=== PATIENT | male | born 1930 | race Caucasian/White ===

== ENCOUNTER 2017-04-24 15:25 | Inpatient (IN) | payer OTHER ==
[~2017-04-24] VITALS: Ht 188 cm; Wt 70.8 kg
--- NOTE | ~2017-04-24 | EKG ---
[address] [place] [address] ELECTROCARDIOGRAM REPORT Name: MANDA MAC Room #: 449-I ADM IN M.R.#: [id number] Admission: 04/24/17 Attend Phys: Bishop Perrin MD Discharge: Date of : 32 Report #: [id number] THIS REPORT FOR: //name// [facility] ED Test Date: 2017-04-24 Test Time: 16:11:24 Pat Name: MANDA MAC Department: Room: [facility] Gender: M Commercial Coordinator: LESVIA : 1930 Requested By: Jared Pugh Order Number: [id number] MD: Tony Ohara Measurements Intervals [place] Rate: 79 P: 25 OR: 136 QRS: 59 QRSD: 98 T: 59 QT: 388 QTc: 445 Interpretive Statements Sinus rhythm Early R-wave progression No previous ECG available for comparison Electronically Signed On 04-25-2017 10:47:20 CDT by Tony Ohara [email or web address] <ELECTRONICALLY SIGNED> By: Tony Ohara MD, [facility] 04/25/17 1047 1611 1611 Tony Ohara MD, FACC /EPI
--- NOTE | ~2017-04-24 | P ---
[facility] [place] [address] PROCEDURE REPORT Name: MANDA MAC Room #: 449-I ADM IN M.R.#: [id number] Admission: 04/24/17 Attend Phys: Bishop Perrin MD Discharge: Date of : 31 Report #: [id number] THIS REPORT FOR: //name// CC: Cal Perrin MD DATE OF SERVICE: 04/26/2017 PROCEDURE: EGD with biopsy. PATIENT OF: Dr. Cal Chen and Dr. Bishop Perrin. INDICATION FOR PROCEDURE: Evaluate severe anemia. The patient experienced syncope from this. Informed consent for this procedure was obtained prior to the administration of any medication. The risks of the procedure, which include bleeding, perforation, infection, complications of sedation and the possibility I could miss something, have been explained to the patient and his and they have indicated their consent by signing. DESCRIPTION OF PROCEDURE: Propofol was slowly titrated before and during this procedure for patient comfort by the anesthesia service. The TowerMetriXn upper videoscope was introduced through the upper esophageal sphincter and advanced under direct visualization to the second portion of the duodenum. Findings are noted on withdrawal of the scope. The distal portion of the second portion of the duodenum appears normal. In the proximal portion of the second portion of the duodenum, there is erythema and a stricture that is not tight enough to prevent passage of the scope. It is very erythematous, edematous and firm. Multiple biopsies times 4 were obtained for histopathology from this area. The duodenal bulb distally is erythematous and edematous as well. Pylorus mildly erythematous. Antrum, erythematous mucosa. There is a small 2- to 3-mm punctate erosion/ulceration that is nonbleeding in the antrum of the stomach and just proximal to that in the antrum, there is a 2-cm edematous circular lesion of uncertain etiology. Biopsies were obtained times 3 from this circular lesion just proximal to the ulceration. Good hemostasis is noted after all biopsies. Biopsies were also taken from the antrum and body of the stomach to evaluate for possible other etiologies of gastroduodenitis and H. pylori infection. The body of the stomach appeared normal on retroflexed view. Cardia and fundus appeared normal. The patient does have a small hiatal hernia. The scope was then withdrawn up into the esophagus and the Z line is approximately located up at 35-36 cm. 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 There are a few erosions in the esophagus that are nonbleeding, proximal [facility] [address] [place] [address] PROCEDURE REPORT Name: MANDA MAC Room #: 449-I ADM IN M.R.#: [id number] Admission: 04/24/17 Attend Phys: Bishop Perrin MD Discharge: Date of : 31 Report #: [id number] to the Rodriguez's ectopic mucosa. The scope was withdrawn. The patient went to the recovery area in stable condition. He tolerated the procedure well. IMPRESSION: 1. 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 2. Small hiatal hernia. 3. Distal gastritis with erosion/ulceration, size 2-3 mm, nonbleeding. 4. A 2-cm edematous area in the antrum, biopsied times 3 for histopathology. 5. Duodenitis of the distal bulb and proximal second portion of the duodenum with a stricture. Multiple biopsies were taken from this area for histopathology. The more distal second portion of the duodenum appears normal. I could not identify the ampulla in this stricture or distal to it or proximal to it. The ampulla may be involved. RECOMMENDATIONS: My recommendations were to continue the proton pump inhibitors, stop taking the Aleve. We will add Carafate slurry to his regimen and we will await the biopsy results. Thank you very much once again for allowing me to participate in his care, Dr. Chen and Dr. Perrin. <ELECTRONICALLY SIGNED> By: Molly Almanza DO 04/26/17 1931 1034 1154 Molly Almanza DO /nt
--- NOTE | ~2017-04-24 | H ---
[facility] [place] [address] HISTORY AND PHYSICAL Name: MANDA MAC Room #: 449-I ADM IN M.R.#: [id number] Admission: 04/24/17 Attend Phys: Bishop Perrin MD Discharge: Date of : 31 Report #: [id number] THIS REPORT FOR: //name// CC: Cal Perrin DATE OF SERVICE: 04/24/2017 CHIEF COMPLAINT: Syncope. HISTORY OF PRESENT ILLNESS: The patient is an 86-year-old male with no significant medical history other than diabetes, controlled with diet and metformin, presented to the emergency room because of a syncopal episode. The patient was actually accompanying his for physical therapy appointment. He was moving from one chair to another, when he ____ some dizziness and he nearly passed out. It was not preceded by any chest pain or shortness of breath. The patient did state that he has been having some indigestion like symptoms and chest discomfort over the last few weeks. He has also had poor p.o. intake. No nausea, vomiting, or abdominal pain. No melena, hematemesis, or hematochezia. Workup in the emergency room showed anemia and also positive stool occult blood. The patient denies any focal numbness or weakness of the extremity. PAST MEDICAL HISTORY: Significant for diabetes, diet controlled and on metformin. No hypertension. No coronary artery disease. No CVA. History of mild dementia. PAST SURGICAL HISTORY: Includes tonsillectomy, vasectomy, scrotal cyst removed, and umbilical surgery. ALLERGIES: No known drug allergy. HOME MEDICATIONS: Include multivitamin, metformin, and ____. SOCIAL HISTORY: No smoking, alcohol abuse, or illicit drug abuse. FAMILY HISTORY: Noncontributory for this 86-year-old male. REVIEW OF SYSTEMS: CONSTITUTIONAL: He might have lost few pounds, unable to quantify. No fever or chills. EYES: No change in vision. THROAT: Denies any sore throat. CARDIOVASCULAR: As above. RESPIRATORY: No cough or expectoration. GASTROINTESTINAL: As above. GENITOURINARY: No dysuria or hematuria. [facility] [address] [place] [address] HISTORY AND PHYSICAL Name: MANDA MAC Room #: 449-I [facility] IN .R.#: [id number] Admission: 04/24/17 Attend Phys: Bishop Perrin MD Discharge: Date of : 31 Report #: [id number] NEUROLOGIC: No focal numbness or weakness of the extremity. PSYCHIATRIC: No anxiety or depression. A 12-point review of system is negative other than the positive and negative dictated in the history of present illness and the review of system. PHYSICAL EXAMINATION: VITAL SIGNS: Blood pressure is 132/49, heart rate of 85 per minute, and afebrile. GENERAL: The patient is awake and alert, not in acute respiratory distress. EYES: Pupils are equal, reactive to light, nonicteric conjunctivae. THROAT: He has mildly dry mucosa. NECK: Supple. No JVD. No bruit. No lymphadenopathy. CARDIOVASCULAR SYSTEM: S1, S2, ____ S3. No murmur. CHEST: Bilateral air entry present. Clear on auscultation. ABDOMEN: Soft. Bowel sounds present. No mass. No organomegaly. No tenderness. PERIPHERY: No pedal edema. No calf tenderness. Dorsalis pedis 1+. NEUROLOGIC: No gross motor or sensory deficit. LABORATORY DATA: Reviewed. White count is 12,000, hemoglobin is ____. Positive stool occult blood. The platelet is 236. PT and PTT are within normal limit. BUN and creatinine of 39 and 0.8. His lactic acid was elevated at 4.2 and AST and ALT are within normal limit. Lipase is 68. CT of the brain showed no acute intracranial abnormality. There are atrophic changes. Chest x-ray showed no acute abnormality. There is apical pleural left parenchymal scarring. There is a slight atelectasis. His lactic also slightly elevated. EKG showed sinus rhythm, consider RVH or posterior infarct. ASSESSMENT: 1. Near syncopal episode. Rule out orthostatic hypotension, could be secondary to his anemia too. The patient will be gently hydrated with IV fluid. We will recheck his orthostatic vital signs and the patient will be monitored on telemetry to rule out any arrhythmia. We will get serial hemoglobin and hematocrit. 2. Indigestion/chest pain. We will get serial troponins, also place him on PPI, I will keep him n.p.o. after midnight for possible EGD. The patient will also be started on Protonix IV. 3. Diabetes. We will get an A1c level. The patient will be placed on sliding scale insulin at present. 4. Elevated lactic acid. The patient does not have any focal signs of any infection, although he has a mild leukocytosis. We will repeat his lactic acid again in 3 hours. ____ mild leukocytosis could be stress related. We will [facility] [address] [place] [address] HISTORY AND PHYSICAL Name: MANDA MAC Room #: 449-I ADM IN M.R.#: [id number] Admission: 04/24/17 Attend Phys: Bishop Perrin MD Discharge: Date of : 31 Report #: [id number] check a UA too. 5. Deep venous thrombosis prophylaxis. He will be placed on SCD on the leg for deep venous thrombosis prophylaxis. We will also obtain an echocardiogram to evaluate left ventricular function. Treatment plan has been explained to the patient and the family at bedside. <ELECTRONICALLY SIGNED> By: Bishop Perrin MD 04/25/17 1320 1911 17 Bishop Perrin MD /nt
--- NOTE | ~2017-04-24 | 2DMMODE ---
[facility] [address] [place] [address] 2 D/M-MODE ECHOCARDIOGRAM Name: MANDA MAC Room #: 449-I ADM IN .R.#: [id number] Admission: 04/24/17 Attend Phys: Chas Butcher Discharge: Date of : 31 Date of Service: 04/25/17 0914 Report #: [id number] THIS REPORT FOR: //name// APPROVED REPORT Study performed: 04/25/2017 08:08:10 EXAM: Comprehensive 2D, Doppler, and color-flow Echocardiogram Patient Location: Bedside Room #: [facility] Status: routine BSA: 1.96 HR: 84 bpm BP: 107/39 mmHg Other Information Study Quality: Good Indications Syncope 2D Dimensions RVDd: 38.64 mm LVEF(%): 60.05 (>50%) IVSd: 7.34 (7-11mm) LVOT Diam: 23.31 (18-24mm) LVDd: 45.04 mm PWd: 9.20 (7-11mm) Ascending Ao: 35.18 (22-36mm) LVDs: 30.70 (25-40mm) Aortic Root: 32.29 mm IVC: 2.10 mm Valdez's LVEF: 60.05 % Volumes Left Atrial Volume (Systole) Single Plane 4CH: 46.67 mL Single Plane 2CH: 51.68 mL LA ESV Index: 28.00 mL/m2 Aortic Valve AoV Peak Mayank.: 1.17 m/s AO Peak Gr.: 5.50 mmHg LVOT Max P.32 mmHg LVOT Max V: 1.15 m/s NELY Vmax: 4.19 cm2 Mitral Valve E/A Ratio: 0.9 MV Decel. Time: 254.47 ms MV E Max Mayank.: 0.82 m/s [facility] [address] [place] [address] 2 D/M-MODE ECHOCARDIOGRAM Name: MANDA MAC Room #: 449-I ADM IN M.R.#: [id number] Admission: 04/24/17 Attend Phys: Chas Butcher Discharge: Date of : 31 Date of Service: 04/25/17 0914 Report #: [id number] A Mayank.: 0.90 m/s MV PHT: 73.80 ms IVRT: 101.50 ms Pulmonary Valve PV Peak Mayank.: 0.92 m/s PV Peak Gr.: 3.41 mmHg Pulmonary Vein P Vein S: 0.39 m/s P Vein A: 0.29 m/s P Vein D: 0.53 m/s P Vein A Dur.: 101.5 msec P Vein S/D Ratio: 0.74 Tricuspid Valve TR Peak Mayank.: 2.56 m/s RAP Estimate: 5.00 mmHg TR Peak Gr.: 26.23 mmHg PA Pressure: 31.00 mmHg Left Ventricle The left ventricle is normal size. There is normal LV segmental wall motion. There is normal left ventricular wall thickness. The left ventricular systolic function is normal. The left ventricular ejection fraction is within the normal range. LVEF is 55-60%. Right Ventricle The right ventricle is normal size. The right ventricular systolic function is normal. Atria The left atrium size is normal. The right atrium size is normal. Aortic Valve Aortic valve is mildly calcified, trileaflet. No aortic regurgitation is present. There is no aortic valvular stenosis. Mitral Valve Mitral valve leaflets are mildly thickened. No mitral regurgitation. No evidence of mitral valve stenosis. Tricuspid Valve The tricuspid valve is normal in structure. There is trace tricuspid regurgitation. The right atrial pressure is estimated at 5 mmHg. There is mild pulmonary hypertension with an estimated PAP of 31 mmHg. Pulmonic Valve [address] [address] 2 D/M-MODE ECHOCARDIOGRAM Name: MANDA MAC Room #: 449-I ADM IN [facility].#: [id number] Admission: 04/24/17 Attend Phys: Chas Butcher Discharge: Date of : 31 Date of Service: 04/25/17 0914 Report #: [id number] The pulmonary valve is normal in structure. Trace pulmonic regurgitation. Great Vessels The aortic root is normal in size. The ascending aorta is normal in size. IVC is normal in size and collapses >50% with inspiration. Pericardium There is no pericardial effusion. <Conclusion> The left ventricular systolic function is normal. There is normal LV segmental wall motion. LVEF is 55-60%. Aortic valve is mildly calcified, trileaflet. No aortic valvular stenosis or insufficiency. Mitral valve leaflets are mildly thickened. No mitral regurgitation. Pulmonary artery pressure of 31mmHg. There is no pericardial effusion. <ELECTRONICALLY SIGNED> By: Tony Ohara MD, FACC 04/25/17913 3 3 Tony Ohara MD, FACC /INF
--- NOTE | ~2017-04-24 | EKG ---
[address] [place] [address] ELECTROCARDIOGRAM REPORT Name: MANDA MAC Room #: 449-I ADM IN M.R.#: [id number] Admission: 04/24/17 Attend Phys: Bishop Perrin MD Discharge: Date of : 31 Report #: [id number] THIS REPORT FOR: //name// [facility] Test Date: 2017-04-24 Test Time: 22:30:37 Pat Name: MANDA MAC Department: Room: [facility] 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
--- NOTE | ~2017-04-24 | CNG ---
[facility] [place] [address] CYTO-NONGYN REPORT PROCEDURE Name: MANDA PEREZ Room #: 460-P ADM IN M.R.#: [id number] Admission: 04/24/17 Date of : 32 Discharge: Report #: [id number] Path Case #: [id number] CYTOPATHOLOGY REPORT COLLECTION DATE: 04/26/2017 RECEIVED DATE: 04/26/2017 SUBMITTING PHYS: Dr. Molly Almanza OTHER PHYS: Dr. Cal Perrin CLINICAL HISTORY: Syncope, GI Bleed SPECIMEN(S) RECEIVED: A.Esophageal brushing * * * * * * * * * * * * FINAL DIAGNOSIS: A. Esophageal brushing: - No malignant cells identified. No fungal organisms seen. Squamous epithelial cells and few columnar cells are present. PATHOLOGIST: Mel Marquez M.D. REPORT ELECTRONICALLY SIGNED BY: Mel Marquez M.D. DATE/TIME: 04/27/2017 12:51 * * * * * * * * * * * * GROSS PATHOLOGY: A. Esophageal brushing: The specimen is labeled "Manda Perez" and consists of a brush tip in fixative. One ThinPrep slide was prepared. (mm 04.26.2017) INTEGRATION DEVELOPER(S): DAVE Smith(ASCP) INITIAL CPT CODE(S): A; 93669 Professional services performed by [facility] at [facility] [address], [place] [address] Technical services performed by [facility] at [address] [place] [address]., [address], [place] [address]. [facility] [address] [place] [address], [address] [place] [address] PHONE: [phone] [facility] [address] [place] [address] CYTO-NONGYN REPORT PROCEDURE Name: MANDA PEREZ Room #: 460-P ADM IN M.R.#: [id number] Admission: 04/24/17 Date of : 31 Discharge: Report #: [id number] Path Case #: [id number] DIRECTOR: Fabian Rivera M.D. * * * END OF REPORT * * *
--- NOTE | ~2017-04-24 | S ---
[facility] [address] [place] [address] SURGICAL PATH RPT PROCEDURE Name: MANDA PEREZ Room #: 460-P DIS IN M.R.#: [id number] Admission: 04/24/17 Date of : 31 Discharge: 04/27/17 Report #: [id number] Path Case #: [id number] PATHOLOGY REPORT COLLECTION DATE: 04/26/2017 RECEIVED DATE: 04/26/2017 SUBMITTING PHYS: Dr. Molly Almanza OTHER PHYS: Dr. Bishop Chen SPECIMEN(S) RECEIVED: A.Second portion of duodenum B.Gastric bx C.Edematous antrum bx D.Esophageal bx * * * * * * * * * * * * FINAL DIAGNOSIS: A. Small bowel mucosa, duodenum stricture, endoscopic biopsy: - Moderate active peptic duodenitis with regenerative changes as well as villous blunting. - Negative for increase in intraepithelial lymphocytosis. - Negative for dysplasia. B. Gastric mucosa, gastric, endoscopic biopsy: - Moderate reactive gastropathy. - Negative for intestinal metaplasia or atrophy. - Negative for Helicobacter pylori. C. Gastric fundic-type mucosa, edematous antrum, endoscopic biopsy: - Mild chronic inflammation. - Negative for intestinal metaplasia or atrophy. - Negative for Helicobacter pylori. D. Gastric fundic-type mucosa, esophageal, endoscopic biopsy: - Specialized columnar epithelium with intestinal metaplasia, consistent with Rodriguez's metaplasia. - Negative for dysplasia. - Focal squamous mucosa present with mild esophagitis. COMMENT: Co-review (part A only): Dr. Mel Marquez Helicobacter pylori immunohistochemical stain performed on block B1-negative Helicobacter pylori immunohistochemical stain performed on block C1-negative The concurrent esophageal brushing ([id number]) showed similar findings as part D of this case. Please see separate report for details. (IUV:mgr; 04/27/2017) [address] [address] SURGICAL PATH RPT PROCEDURE Name: MANDA PEREZ Room #: 460-P DIS IN M.R.#: [id number] Admission: 04/24/17 Date of : 32 Discharge: 04/27/17 Report #: [id number] Path Case #: [id number] PATHOLOGIST: Lizette Elizalde M.D. REPORT ELECTRONICALLY SIGNED BY: Lizette Elizalde M.D. DATE/TIME: 04/27/2017 16:09 * * * * * * * * * * * * GROSS PATHOLOGY: A. Received in formalin labeled "Manda Perez, duodenum stricture BX," and additionally labeled on the requisition as "second portion," are three segments of fishman soft tissue measuring 0.9 x 0.3 x 0.2 cm in aggregate dimensions and ranging from 0.2 to 0.4 cm in maximum dimension. The specimen is submitted entirely in cassette A1. B. Received in formalin labeled "Manda Perez gastric BX," and additionally labeled on the requisition as "R/O H. pylori," is a segment of fishman soft tissue measuring 0.4 cm in maximum dimension. The specimen is submitted entirely in cassette B1. C. Received in formalin labeled "Manda Perez, Edematous antrum BX," is a segment of fishman soft tissue measuring 0.4 cm in maximum dimension. The specimen is submitted entirely in cassette C1. D. Received in formalin labeled "Manda Perez, esophageal BX," and additionally labeled on the requisition as "R/O Rodriguez's," are two segments of fishman soft tissue measuring 0.4 x 0.2 x 0.2 cm in aggregate dimensions and ranging from 0.2 to 0.2 cm in maximum dimension. The specimen is submitted entirely in cassette D1. (TSD; 04/26/2017) CLINICAL HISTORY: Pre-OP DX: Anemia Post-OP DX: Antrum ulcer, hiatal hernia, gastric ulcer INITIAL CPT CODE(S): A; 96280 B; 14655, 62677 C; 99806, 50965 D; 28954 Professional services performed by [facility] at [address], [place] [address] Technical services performed by [facility] at [address] [place] [address], [address] [address]. [facility] [address] [place] [address] SURGICAL PATH RPT PROCEDURE Name: MANDA PEREZ Room #: 460-P DIS IN M.R.#: [id number] Admission: 04/24/17 Date of : 32 Discharge: 04/27/17 Report #: [id number] Path Case #: [id number] [address] PHONE: [phone] DIRECTOR: Fabian Rivera M.D. * * * END OF REPORT * * *
--- NOTE | ~2017-04-24 | HC ---
[facility] [place] [address] CONSULTATION Name: MANDA MAC Room #: 449-I ADM IN M.R.#: [id number] Admission: 04/24/17 Attend Phys: Bishop Perrin MD Discharge: Date of : 31 Report #: [id number] THIS REPORT FOR: //name// CC: Cal Perrin REASON FOR CONSULTATION: The patient is an 86-year-old male who had syncopal or near-syncopal events, was found to be anemic with Hemoccult positive stools. HISTORY OF PRESENT ILLNESS: This 86-year-old male reports that he has generally been in good health. He has a history of diabetes which has been controlled with diet and metformin. Yesterday, he accompanied his to her physical therapy appointment. He was watching her do exercises, and then, he felt dizzy and lightheaded and started to slump over. Someone grabbed him before he hit the floor. He denies any chest pain or shortness of breath. He did not have any nausea or vomiting. He was brought to [facility] where he was seen and evaluated. His hemoglobin was 9, but has trended down to 7.3 today. His MCV is normal at 96.7; white count of 7.2; platelet count of 214,000. INR of 1.0. His electrolytes were normal. BUN was up 33, creatinine is 0.7. Glucose 118. Iron was low at 49. TIBC, low normal range at 258. Ferritin normal at 32. Total bilirubin 0.1. AST, ALT, and alk phos are all unremarkable. Having a 3.0 lipase is normal; 12 of folate was normal. His lactic acid was initially 4.1, repeat was down to 1.5. The patient denies previous history of ulcer disease or GI symptoms; however, he typically does take an Aleve at night time to help with sleep. PAST MEDICAL HISTORY: Notable for diabetes. He reports he has otherwise been in good health. 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 PAST SURGICAL HISTORY: Tonsillectomy, vasectomy, inguinal hernia, and umbilical hernia repairs. ALLERGIES: No known drug allergies. USUAL MEDICATIONS: Atorvastatin 20 mg daily, 10 mg daily, Namenda 10 mg daily, metformin 1000 mg twice daily. FAMILY HISTORY: No family history of colon cancer or ulcer disease. His last colonoscopy was many years ago. SOCIAL HISTORY: Quit smoking in the 1970s. He does not use much alcohol. REVIEW OF SYSTEMS: GENERAL: No change in weight, fever, or chills. Other than yesterday, no focal [address] [address] CONSULTATION Name: MANDA MAC Room #: 449-I [facility] IN M.R.#: [id number] Admission: 04/24/17 Attend Phys: Bishop Perrin MD Discharge: Date of : 31 Report #: [id number] weakness, numbness, loss of consciousness, seizures, strokes. HEENT: No change in vision or hearing. No sores in his mouth. He does take vitamins for his vision. PULMONARY: Remote smoker. No cough, pneumonia or tuberculosis. CARDIOVASCULAR: No chest pain, chest tightness or palpitations. GASTROINTESTINAL: No abdominal pain, nausea, vomiting and hematemesis. He does not look at stools, so he cannot tell me whether or not he has seen black stools recently. Last colonoscopy was many years ago. GENITOURINARY: Without dysuria, pyuria, kidney stones, or urinary tract infection. ORTHOPEDIC: Arthritis of his hips. SKIN: Without rashes. PSYCHIATRIC: No depression, anxiety, or bipolar illness. ENDOCRINE: He has diabetes, but not aware of thyroid problems. HEMATOLOGIC: No previous bleeding, bruising, or malignancy. PHYSICAL EXAMINATION: GENERAL: The patient is a well-developed, well-nourished thin male who is in no acute distress. VITAL SIGNS: Blood pressure 120/49. HEENT: Anicteric. Pupils equal and round. Oropharynx clear. NECK: Supple CHEST: Clear. HEART: Regular rate and rhythm, normal S1, normal S2. ABDOMEN: Normal bowel sounds, soft, nontender, without hepatosplenomegaly or masses. RECTAL: Not done. EXTREMITIES: Without cyanosis, clubbing, or edema. ASSESSMENT: 1. Syncope/near-syncope. 2. Anemia with normal indices. 3. Hemoccult-positive stools. 4. Use of Aleve. 5. Mild dementia. 6. Diabetes. PLAN: 1. Agree with PPI, which has been started. 2. Plan for upper endoscopy tomorrow with Dr. Almanza. 3. Will likely need to discontinue Aleve which maybe a culprit for gastrointestinal blood loss. <ELECTRONICALLY SIGNED> By: Jeremy Barajas MD 04/25/17 [id number] Jeremy Barajas MD /nt
[2017-04-24 15:28] VITALS: BP 118/41
[2017-04-24 16:02] LABS: ABSOLUTE NEUTROPHILS 9.6 thou/uL (1.4-8.2); BASOPHILS 0.5 % (0.0-2.0); EOSINOPHILS 0.3 % (0.0-3.0); HEMATOCRIT 26.5 % (42.0-52.0); MCH 32.7 pg (26.0-34.0); MCHC 34.1 g/dL (28.0-37.0); MCV 95.8 fL (80.0-100.0); PLATELET COUNT 236 thou/uL (150-400); POLYS 80.2 % (36.0-66.0); RBC 2.77 mil/uL (4.50-6.00); RDW 13.4 % (10.5-14.5)
[2017-04-24 16:12] LABS: MANUAL DIFF NO
[2017-04-24 16:29] LABS: ANION GAP 11 mmol/L (7-16); BUN 39 mg/dL (7-18); CALCIUM 8.3 mg/dL (8.5-10.1); CHLORIDE 107 mmol/L (98-107); CO2 24 mmol/L (21-32); CREATININE 0.8 mg/dL (0.7-1.3); GLUCOSE 186 mg/dL (74-106); POTASSIUM 4.2 mmol/L (3.5-5.1); SODIUM 142 mmol/L (136-145)
[2017-04-24 16:44] LABS: NT-PRO BRAIN NAT PEPTIDE 27 pg/mL (<300); TROPONIN-I < 0.04 ng/mL (<0.04-0.07)
[2017-04-24 16:45] LABS: ALKALINE PHOSPHATASE 43 U/L (46-116); DIRECT BILIRUBIN < 0.1 mg/dL (<0.1-0.3); SGOT 20 U/L (15-37); SGPT 16 U/L (30-65); TOTAL BILIRUBIN 0.1 mg/dL (<0.1-1.0)
[2017-04-24 16:46] LABS: TOTAL PROTEIN 5.7 g/dL (6.4-8.2)
[2017-04-24 17:08] LABS: APTT 23.5 Seconds (24.5-32.8); PROTIME 10.6 Seconds (9.3-11.4)
[2017-04-24 17:13] VITALS: BP 120/44
[2017-04-24] MEDS ORDERED: NAMENDA 10 MG T10 MG PO (18:01)
[2017-04-24] MEDS ORDERED: ARICEPT 5 MG TAB5 MG PO (18:02)
[2017-04-24] MEDS ORDERED: LIPITOR 20 MG T20 M1 PO (18:02)
[2017-04-24] MEDS ORDERED: METFORMIN HCL500 MG PO (18:03)
[2017-04-24 18:07] VITALS: BP 122/46
[2017-04-24 18:39] VITALS: BP 132/49
[2017-04-24 23:10] VITALS: BP 112/52
[2017-04-25 03:52] LABS: CALCIUM 8.5 mg/dL (8.5-10.1); CREATININE 0.7 mg/dL (0.7-1.3); MAGNESIUM 1.7 mg/dL (1.8-2.4); POTASSIUM 3.7 mmol/L (3.5-5.1)
[2017-04-25 04:07] LABS: ABSOLUTE NEUTROPHILS 4.2 thou/uL (1.4-8.2); BASOPHILS 0.5 % (0.0-2.0); EOSINOPHILS 1.5 % (0.0-3.0); HEMATOCRIT 24.1 % (42.0-52.0); HEMOGLOBIN 8.2 gm/dL (14.0-18.0); LYMPHOCYTES 32.5 % (24.0-44.0); MCH 32.8 pg (26.0-34.0); MCHC 33.9 g/dL (28.0-37.0); MCV 96.7 fL (80.0-100.0); MONOCYTES 7.9 % (1.0-8.0); PLATELET COUNT 214 thou/uL (150-400); POLYS 57.6 % (36.0-66.0); RBC 2.49 mil/uL (4.50-6.00); RDW 13.4 % (10.5-14.5); WBC 7.2 thou/uL (4.0-11.0)
[2017-04-25 04:10] LABS: MANUAL DIFF NO
[2017-04-25 05:21] VITALS: BP 100/41
[2017-04-25 07:40] VITALS: BP 107/39
[2017-04-25 11:24] VITALS: BP 120/49
[2017-04-25 12:22] LABS: ABSOLUTE RETIC COUNT 0.063 10^6/uL; OBSERVED RETIC COUNT 2.81 % (0.6-2.6)
[2017-04-25 12:58] LABS: FOLIC ACID 19.9 ng/mL (8.6-58.9)
[2017-04-25 13:08] LABS: % SATURATION 19 % (20-39); IRON 49 ug/dL (65-175); TIBC 258 ug/dL (250-450); UIBC 209 ug/dL
[2017-04-25 15:20] VITALS: BP 97/55
[2017-04-25 20:14] VITALS: BP 107/49
[2017-04-25 20:16] VITALS: BP 115/45; BP 115/51
[2017-04-26 04:32] VITALS: BP 138/53
[2017-04-26 05:37] LABS: ALBUMIN 3.1 g/dL (3.4-5.0); CALCIUM 8.6 mg/dL (8.5-10.1); CREATININE 0.6 mg/dL (0.7-1.3); MAGNESIUM 1.8 mg/dL (1.8-2.4); POTASSIUM 4.3 mmol/L (3.5-5.1); TOTAL BILIRUBIN 0.4 mg/dL (<0.1-1.0); TOTAL PROTEIN 6.1 g/dL (6.4-8.2)
[2017-04-26 07:30] VITALS: BP 137/63
[2017-04-26 11:06] VITALS: BP 107/54
[2017-04-26 14:59] VITALS: BP 117/53
[2017-04-26 19:43] VITALS: BP 104/53
[2017-04-27 03:18] VITALS: BP 133/59
[2017-04-27 05:08] LABS: GLYCOHEMOGLOBIN (HGB A1C) 5.3 % (4.8-5.6)
[2017-04-27 05:46] LABS: ABSOLUTE NEUTROPHILS 3.7 thou/uL (1.4-8.2); BASOPHILS 0.7 % (0.0-2.0); EOSINOPHILS 6.2 % (0.0-3.0); HEMATOCRIT 26.2 % (42.0-52.0); HEMOGLOBIN 9.1 gm/dL (14.0-18.0); LYMPHOCYTES 30.5 % (24.0-44.0); MANUAL DIFF NO; MCH 33.5 pg (26.0-34.0); MCHC 34.7 g/dL (28.0-37.0); MCV 96.5 fL (80.0-100.0); MONOCYTES 7.5 % (1.0-8.0); PLATELET COUNT 223 thou/uL (150-400); POLYS 55.1 % (36.0-66.0); RBC 2.71 mil/uL (4.50-6.00); RDW 13.5 % (10.5-14.5); WBC 6.7 thou/uL (4.0-11.0)
[2017-04-27 06:03] LABS: CALCIUM 8.4 mg/dL (8.5-10.1); CREATININE 0.6 mg/dL (0.7-1.3); MAGNESIUM 1.8 mg/dL (1.8-2.4); POTASSIUM 3.9 mmol/L (3.5-5.1)
[2017-04-27 07:14] LABS: URINE BILIRUBIN NEGATIVE (Negative); URINE BLOOD NEGATIVE (Negative); URINE COLOR YELLOW; URINE GLUCOSE-RANDOM* NEGATIVE (Negative); URINE KETONES NEGATIVE (Negative); URINE LEUKOCYTES-REFLEX NEGATIVE (Negative); URINE PROTEIN (DIPSTICK) NEGATIVE (Negative); URINE UROBILINOGEN 0.2 E.U./dl (0.2-1.0)
[2017-04-27 08:00] VITALS: BP 102/56
[2017-04-27] MEDS ORDERED: CARAFATE 11 GM/10 M1 PO (11:04)
[2017-04-27] MEDS ORDERED: IRON325 PO (11:04)
[2017-04-27] MEDS ORDERED: PROTONIX40 M1 PO (11:04)
[2017-04-27 12:00] VITALS: BP 108/48
[2017-04-27 14:32] VITALS: BP 108/48
== END 2017-04-27 15:38 | disposition home or self-care (01) | DRG 812 ==
LOC: ER 15:25 → 4W 17:05 → EROBS 17:05 → 4W 18:07
PROVIDERS: Internal Medicine; Nurse Practitioner
DX: D64.9 Anemia, unspecified (principal); K92.2 Gastrointestinal hemorrhage, unspecified; E87.2 Acidosis; R65.10 Systemic inflammatory response syndrome (SIRS) of non-infectious origin without acute organ dysfunction; K31.5 Obstruction of duodenum; D62 Acute posthemorrhagic anemia; E11.9 Type 2 diabetes mellitus without complications; F03.90 Unspecified dementia, unspecified severity, without behavioral disturbance, psychotic disturbance, mood disturbance, and anxiety; K22.70 Barrett's esophagus without dysplasia; K44.9 Diaphragmatic hernia without obstruction or gangrene; K25.9 Gastric ulcer, unspecified as acute or chronic, without hemorrhage or perforation; K29.80 Duodenitis without bleeding; K21.9 Gastro-esophageal reflux disease without esophagitis; E78.5 Hyperlipidemia, unspecified; E78.00 Pure hypercholesterolemia, unspecified; R07.89 Other chest pain; T41.295A Adverse effect of other general anesthetics, initial encounter; Y92.89 Other specified places as the place of occurrence of the external cause; Z79.84 Long term (current) use of oral hypoglycemic drugs; Z87.891 Personal history of nicotine dependence; Z79.899 Other long term (current) drug therapy
CPT/HCPCS: 10045; 62110; 70005

== ENCOUNTER → 2017-08-10 | Outpatient (CLI) | payer OTHER ==
[~2017-08-10] VITALS: Ht 177.8 cm; Wt 73.0 kg
[~2017-08-10] MED LIST: ARICEPT 5 MG TAB5 MG PO; CARAFATE 11 GM/10 M1 PO; IRON325 PO; LIPITOR 20 MG T20 M1 PO; METFORMIN HCL500 MG PO; NAMENDA 10 MG T10 MG PO; PROTONIX40 M1 PO
--- NOTE | ~2017-08-10 | HPC ---
[facility] [place] [address] PAIN MANAGEMENT CONSULTATION Name: MANDA MAC [facility] [id number] Admission: 08/10/17 Attend Phys: Rickey Real MD Discharge: Date of : 31 Report #: [id number] THIS REPORT FOR: //name// CC: Cal Real DATE OF SERVICE: 08/10/2017 CHIEF COMPLAINT: Low back pain over the last year or so radiating past the knee and into the left foot. This is the first visit for the patient who he is here today for treatment of lumbar radiculopathy sent to our clinic by Dr. Cal Chen. The patient has chronic aching pain, which he scores as 10/10 in intensity. It is worse with standing, but all activities are affected by pain. He has had some exercise and physical therapy, tried medication with poor response, is here today hopeful for some relief with an epidural. He presents with an MRI scan, which was reviewed. It shows levoscoliosis and degenerative disk disease and facet arthropathy consistent with age. There is foraminal encroachment worse on the left on the symptomatic side at L4-L5 and L5-S1. MEDICATIONS: Metformin, memantine, pantoprazole, atorvastatin, Lipitor, ____ and iron. ALLERGIES: None. PAST MEDICAL HISTORY: Osteoarthritis, diabetes and dementia. SOCIAL HISTORY: He is retired. He is here today with his and his daughter. Denies use of tobacco, but enjoys a beer a few times a week. He lives in his house with his . REVIEW OF SYSTEMS: Positive for memory issues, but the form completed by the patient and family is otherwise negative for the 13-point review. PHYSICAL EXAMINATION: MUSCULOSKELETAL: He is able to move from a sitting to standing position, ambulates with an antalgic gait. He has pain and tenderness across his low back. Straight leg raising on the left reproduces pain down into the calf and ankle. Sensation is diminished. Deep tendon reflexes are 3+ at the knee and 1-2+ at the ankle. Strength is symmetrical. VITAL SIGNS: Blood pressure 127/48, heart rate 63 and respirations 16. He is afebrile. [address] [address] PAIN MANAGEMENT CONSULTATION Name: MANDA MAC Room #: REG [facility].#: [id number] Admission: 08/10/17 Attend Phys: Rickey Real MD Discharge: Date of : 31 Report #: [id number] IMPRESSION: 1. Low back pain with radiculopathy, left L4-L5. 2. Diabetes. 3. Dementia. PLAN: Lumbar epidural injection L4-L5 under fluoroscopic guidance. PROCEDURE: The patient was taken to the fluoroscopic suite, was placed prone, skin prepped with ChloraPrep. Skin anesthetized over the L4-L5 interspace. A 20-gauge Tuohy epidural needle was advanced in the epidural space with loss of resistance technique. There was no blood or CSF aspirated. 1 mL of Omnipaque was injected. Spread of dye observed in the epidural space followed by 3 mL of 1% lidocaine mixed with 80 mg of triamcinolone. He tolerated the procedure well and was observed for 45 minutes and taken to the recovery room with a diminished pain score. Followup visit planned in 2 weeks to a month. By: 1020 [id number] Rickey Real MD /nt
[2017-08-10 11:23] VITALS: BP 110/47
== END | disposition home or self-care (01) ==
LOC: PAIN 06:42
DX: M54.16 Radiculopathy, lumbar region (principal); G89.29 Other chronic pain; E11.9 Type 2 diabetes mellitus without complications; M19.90 Unspecified osteoarthritis, unspecified site; G30.9 Alzheimer's disease, unspecified; F02.81 Dementia in other diseases classified elsewhere, unspecified severity, with behavioral disturbance; Z79.899 Other long term (current) drug therapy; Z98.890 Other specified postprocedural states; Z85.828 Personal history of other malignant neoplasm of skin

== ENCOUNTER → 2017-10-09 | Outpatient (CLI) | payer OTHER ==
[~2017-10-09] VITALS: Ht 177.8 cm; Wt 72.3 kg
--- NOTE | ~2017-10-09 | HPC ---
[facility] [place] [address] [place] [address] PAIN MANAGEMENT CONSULTATION Name: MANDA MAC [id number] Admission: 10/09/17 Attend Phys: Rcikey Real MD Discharge: Date of : 31 Report #: [id number] THIS REPORT FOR: //name// CC: Cal Real DATE OF SERVICE: 10/09/2017 Followup visit for lumbar radiculopathy. The patient returns to pain clinic today in followup. His and his daughter attend his visit. He had good response to the epidural injection provided in 07/2017. He had sustained improvement for roughly 4 weeks and still remains improved over his initial presentation. At his prior visit, he scored his pain as a 10/10. Prior to injection today, his presenting pain score is 9/10. Pain is mostly in his left lower back, radiates through the hip and down into the leg in a radicular pattern, follows all the way down to L4-L5. He has very significant lumbar multilevel foraminal encroachment on the left, particularly at L4-L5 and L5-S1. There is levoscoliosis and degenerative disk disease throughout with arthropathy. He and his remain active and in their own home. They have multiple steps. He is able to manage those. They are avid walkers and the cold weather has limited them some. We talked about exercise today and my focus is primarily on weightbearing activity such as walking. MEDICATIONS: Reviewed and reconciled with no changes. His only pain medication is Tylenol. PQRS REVIEW: He does have a history of osteoarthritis involving large joints, it is managed with activity and Tylenol. He is 5 feet 10 inches, 159 pounds with a BMI of 22.9. VITAL SIGNS: Blood pressure is 120/69, heart rate 67, respirations 16. Pain score 8/10 today. He is not listed as a fall risk, although he does have some dementia. He does not use a cane or walking assist device. He is on no blood thinners and has no hypertension. He does not have an opioid medication ordered, although has in the past used tramadol. No history of recreational drug use. He is a former smoker and still enjoys alcoholic beverages once or twice a week. Examination of the low back reveals tenderness across the lumbosacral segment. He has some mild positive straight leg raising on the left consistent with radiculopathy. [address] [address] PAIN MANAGEMENT CONSULTATION Name: MANDA MAC Room #: REG CLI Kenneth#: [id number] Admission: 10/09/17 Attend Phys: Rickey Real MD Discharge: Date of : 31 Report #: [id number] IMPRESSION: 1. Lumbar radiculopathy. 2. Mild dementia. 3. Type 2 diabetes. PLAN: Proceed with epidural injection under fluoroscopic guidance, L4-L5 left paramedian approach. He was taken to fluoroscopic suite, placed prone, skin prepped with ChloraPrep. Skin anesthetized over L4-L5. A 20-gauge Tuohy epidural needle advanced nicely into the epidural space in first attempt with loss of resistance. No blood or CSF aspirated. 1 mL of Omnipaque injected with good spread of dye observed into the epidural space. It was then followed by 3 mL of 1% lidocaine with 80 mg of triamcinolone. He tolerated the procedure well and was observed for 45 minutes and discharged. Followup visit planned as needed. <ELECTRONICALLY SIGNED> By: Rickey Real MD 11/08/17 [id number] Rickey Real MD /nt
[2017-10-09 09:51] VITALS: BP 120/69
== END | disposition home or self-care (01) ==
LOC: PAIN 06:58
DX: M54.16 Radiculopathy, lumbar region (principal); G89.29 Other chronic pain; E11.9 Type 2 diabetes mellitus without complications; F03.90 Unspecified dementia, unspecified severity, without behavioral disturbance, psychotic disturbance, mood disturbance, and anxiety; M19.90 Unspecified osteoarthritis, unspecified site; Z98.890 Other specified postprocedural states; Z87.891 Personal history of nicotine dependence; Z79.899 Other long term (current) drug therapy